=== PATIENT | male | born 1975 | race Caucasian/White ===

== ENCOUNTER 2018-08-04 11:15 | Emergency (ER) | payer OTHER ==
[2018-08-04 11:18] VITALS: BP 130/92
--- NOTE | 2018-08-04 11:34 | EDPHY ---
H & P Stated Complaint: Right Ankle Injury Source: Patient Exam Limitations: No limitations - Personal History Current Tetanus Diphtheria and Acellular Pertussis (TDAP): Yes - Medical/Surgical History Hx Asthma: No Hx Chronic Respiratory Disease: No Hx Diabetes: No Hx Cardiac Disease: No Hx Renal Disease: No Hx Cirrhosis: No Hx Alcoholism: No Hx HIV/AIDS: No Hx Splenectomy or Spleen Trauma: No Other PMH: denies - Social History Smoking Status: Never smoked Time Seen by Provider: 08/04/18 11:31 HPI/ROS: HPI: This is a 43-year-old male who presents with Chief Complaint: Right ankle injury Location: Right ankle Quality: Injury Duration: 1 hr prior to arrival Signs and Symptoms: No bleeding, no radiation, no numbness, no weakness, no tingling, no incontinence, no decreased range of motion, + swelling, + pain, no fever Timing: Acute Severity: 12/03 Context: Patient was setting up for race at [employer] when his ski tip hit in edge and plantar flexed his right foot forward. Patient reports that he ski boots were loose and his ankle flexed forward and he "heard a pop sound" followed by immediate, constant, severe pain. Patient reports that he took his ski boot off and sat down and had immediate swelling on the lateral aspect of his right ankle. He reports that there is pain with weight-bearing. He denies any decreased range of motion. Denies radiation, weakness, paresthesias. Patient lives in [place]. Modifying Factors: Applied ice and took ibuprofen 800 mg Comment: ROS: A comprehensive 10 system review of systems is otherwise negative aside from elements mentioned in the history of present illness. MEDICAL/SURGICAL/SOCIAL HISTORY: Medical history: Generally healthy. Does not take any regular medications. Surgical history: Denies Social history: Employed, with children, nonsmoker. CONSTITUTIONAL: Well-developed, well-nourished, physically fit middle-aged white male, and daughter at bedside, awake and alert, no obvious distress HEENT: Atraumatic and normocephalic. NECK: supple EXTREMITIES: 2/2 pedal pulses, strength 5/5, right Ankle: Plantar flexion to 50 , dorsiflexion to 20. Foot inversion to 35 degree. Moderate tenderness/ swelling Anterior talofibular ligament. Moderate tenderness/swelling Calcaneofibular ligament, no tenderness/swelling posterior talofibular ligament , no tenderness/swelling posterior inferior tibiofibular ligament. Achilles tendon intact. DIP/PIP/MCP flexion/extension intact with good light touch sensation. no deformities, no clubbing, no cyanosis or edema. NEUROLOGICAL: no focal neuro deficits. GCS 15. Light touch sensation intact. SKIN: Warm and dry, no erythema. no rash. Good capillary refill. (Anamika Rivera) Constitutional: Initial Vital Signs Temperature (C) 36.8 C 08/04/18 11:16 Heart Rate 69 08/04/18 11:16 Respiratory Rate 18 08/04/18 11:16 Blood Pressure 130/92 H 08/04/18 11:16 O2 Sat (%) 96 08/04/18 11:16 O2 Delivery Mode Room Air Allergies/Adverse Reactions: Penicillins Allergy (Verified 08/04/18 11:16) Home Medications: Medication Instructions Recorded oxyCODONE/APAP 5/325 [Percocet 1 - 2 tab PO Q4H PRN #10 tab 08/04/18 5/325 (*)] Medical Decision Making - Diagnostics Imaging Results: Imaging Impressions Ankle X-Ray 08/04/18 11:24 Impression: 1. Oblique nondisplaced fracture distal fibular shaft above the ankle mortise level. Procedures: Procedure: Splint placement. A short-leg 3 way Ortho Glass splint was applied by the Emergency Room biochemistry technician. After application of the splint I returned and re-examined the patient. The splint was adequately immobilizing the joint and distal to the splint the patient's circulation and sensation was intact. (Anamika Rivera) ED Course/Re-evaluation: Vital signs reviewed and stable upon arrival. Ice pack applied and right ankle x-ray ordered Right ankle x-ray my read shows distal fibula fracture; nondisplaced Placed in 3 way short-leg Ortho Glass, crutches, orthopedic follow-up Given prescription for Percocet No signs of neurovascular compromise/tenting of skin/compartment syndrome/ extremities and joints examined above and below area of concern and are neurovascularly intact. This patient was seen under the supervision of my secondary supervising physician. I evaluated care for this patient independently. Discussed this patient with Dr. Long who did not see the patient. (Anamika Rivera) I did not see this patient while he was in the emergency department. However his care was discussed with the PA while the patient was in the department. I agree with treatment plan and management (Keenna Long) Differential Diagnosis: Ankle injury differential diagnosis includes but is not limited to tibia fracture, fibula fracture, metatarsal fracture, LisFranc fracture, achilles tendon rupture, sprain. (Anamika Rivera) Departure - Departure Disposition: Home, Routine, Self-Care Clinical Impression: Closed fracture of right distal fibula Qualifiers: Encounter type: initial encounter Fracture morphology: torus Qualified Code(s) : S82.821A - Torus fracture of lower end of right fibula, initial encounter for closed fracture High ankle sprain of right lower extremity Qualifiers: Encounter type: initial encounter Qualified Code(s): S93.431A - Sprain of tibiofibular ligament of right ankle, initial encounter Condition: Good Instructions: Ankle Fracture (ED), Crutch Instructions (ED), Splint Care (ED), ORIF (DC) Additional Instructions: Keep the splint dry and in place until seen by Orthopedics. Use crutches to aid ambulation. Start with toe-touch weight-bearing status. Take Tylenol 650 mg every 4 hours and/or Ibuprofen 600 mg every 8 hours with food as needed for pain. Use Percocet every 6 hours as needed for severe/break through pain. Do not use Tylenol and Percocet concomitantly. Apply ice for 30 minutes at a time; 2-3 times per day for the next 1-2 days. Follow up with Orthopedics in 3-5 days at which time they will evaluate and recommend with you if conservative management versus surgery is indicated. Return to the ER immediately if you experience new or worsening pain, discoloration, numbness, tingling, or any other symptoms that concern you. Referrals: Rebecca Araujo MD [Primary Care Provider] - As per Instructions Milo Gunderson MD [Medical Doctor] - As per Instructions Prescriptions: oxyCODONE/APAP 5/325 [Percocet 5/325 (*)] 1 - 2 tab PO Q4H PRN #10 tab PRN Reason: Pain, Severe
== END 2018-08-04 12:21 | disposition home or self-care (01) ==
PROC: 2W3QX1Z Immobilization of Right Lower Leg using Splint (ICD-10-PCS; principal; 2018-08-04)
DX: S82.821A Torus fracture of lower end of right fibula, initial encounter for closed fracture (principal); S93.431A Sprain of tibiofibular ligament of right ankle, initial encounter; X50.9XXA Other and unspecified overexertion or strenuous movements or postures, initial encounter; Y92.838 Other recreation area as the place of occurrence of the external cause; Y93.23 Activity, snow (alpine) (downhill) skiing, snowboarding, sledding, tobogganing and snow tubing; Y99.0 Civilian activity done for income or pay